=== PATIENT | female | born 1975 | race African-American/Black ===

== ENCOUNTER 2023-07-26 16:34 | Emergency (ER) | payer MEDICAID ==
[~2023-07-26] VITALS: Ht 175.3 cm; Wt 70.8 kg
[2023-07-26 16:40] VITALS: O2SAT 99
== END 2023-07-26 17:37 | disposition home or self-care (01) ==
LOC: ER 16:38
DX: S83.92XA Sprain of unspecified site of left knee, initial encounter (principal); X58.XXXA Exposure to other specified factors, initial encounter; Y93.89 Activity, other specified; Y92.89 Other specified places as the place of occurrence of the external cause; Y99.8 Other external cause status
CPT/HCPCS: A4663

== ENCOUNTER 2023-08-01 20:41 | Emergency (ER) | payer MEDICAID ==
[~2023-08-01] VITALS: Ht 175.3 cm; Wt 72.6 kg
[2023-08-01 20:45] VITALS: O2SAT 97
== END 2023-08-01 21:30 | disposition home or self-care (01) ==
LOC: ER 20:43
DX: R07.89 Other chest pain (principal)
CPT/HCPCS: 93005; A4663

== ENCOUNTER 2024-12-17 11:50 | Emergency (ER) | payer MEDICAID ==
[~2024-12-17] VITALS: Ht 175.3 cm; Wt 69.9 kg
[2024-12-17] MEDS ORDERED: ACET-3102 PO (14:55)
[2024-12-17] MEDS ORDERED: IBUP-1955 PO (14:55)
[2024-12-17 16:05] VITALS: BP 136/78; O2SAT 99
== END 2024-12-17 16:07 | disposition home or self-care (01) ==
LOC: ER 11:50
DX: S16.1XXA Strain of muscle, fascia and tendon at neck level, initial encounter (principal); S39.012A Strain of muscle, fascia and tendon of lower back, initial encounter; M54.2 Cervicalgia; V43.52XA Car driver injured in collision with other type car in traffic accident, initial encounter; Y93.89 Activity, other specified; Y92.410 Unspecified street and highway as the place of occurrence of the external cause; Y99.8 Other external cause status
CPT/HCPCS: 72125; 72131; A4606; A4663

== ENCOUNTER 2025-01-14 10:02 | Emergency (ER) | payer MEDICAID ==
[~2025-01-14] VITALS: Ht 175.3 cm; Wt 72.6 kg
[~2025-01-14 10:02] MED LIST: ACET-3102 PO; IBUP-1955 PO
[2025-01-14] MEDS ORDERED: SULF1TAB48 PO (11:03)
[2025-01-14 11:10] VITALS: BP 107/76; TEMP 98.7; O2SAT 100
== END 2025-01-14 11:11 | disposition home or self-care (01) ==
LOC: ER 10:02
DX: S16.1XXA Strain of muscle, fascia and tendon at neck level, initial encounter (principal); S39.012A Strain of muscle, fascia and tendon of lower back, initial encounter; L08.9 Local infection of the skin and subcutaneous tissue, unspecified; V43.52XA Car driver injured in collision with other type car in traffic accident, initial encounter; Y93.89 Activity, other specified; Y92.488 Other paved roadways as the place of occurrence of the external cause; Y99.8 Other external cause status
CPT/HCPCS: A4606; A4663

== ENCOUNTER 2025-04-18 15:23 | Emergency (ER) | payer MEDICAID ==
[~2025-04-18] VITALS: Ht 175.3 cm; Wt 68.9 kg
[~2025-04-18 15:23] MED LIST changes: +SULF1TAB48 PO
[2025-04-18 16:40] VITALS: BP 98/78; TEMP 97.8; O2SAT 99
== END 2025-04-18 16:41 | disposition home or self-care (01) ==
LOC: ER 15:23
DX: R55 Syncope and collapse (principal); F43.0 Acute stress reaction; R11.0 Nausea
CPT/HCPCS: A4606; A4663

== ENCOUNTER 2025-06-29 12:00 | Emergency (ER) | payer MEDICAID ==
[~2025-06-29] VITALS: Ht 175.3 cm; Wt 68.9 kg
[2025-06-29 12:26] VITALS: BP 109/71; O2SAT 98
== END 2025-06-29 14:07 | disposition left against medical advice (07) ==
LOC: ER 12:00
DX: R19.7 Diarrhea, unspecified (principal); Z53.21 Procedure and treatment not carried out due to patient leaving prior to being seen by health care provider
CPT/HCPCS: A4606; A4663